=== PATIENT | male | born 1965 | race Two or more races ===

== ENCOUNTER 2016-07-25 12:48 | Emergency (ER) | payer SELFPAY ==
[~2016-07-25] VITALS: Ht 165.1 cm; Wt 61.2 kg
[2016-07-25] MEDS ORDERED: LORAZEPAM 1 MG TABLET ONE ×2 (13:09→13:22)
[2016-07-25] MEDS ORDERED: ONDANSETRON 4 MG TAB.RAPDIS ONE ×2 (13:09→13:23)
[2016-07-25] MEDS ORDERED: LORAZEPAM 1 MG TABLET PO ONE (13:30)
[2016-07-25] MEDS ORDERED: ONDANSETRON 4 MG TAB.RAPDIS SL ONE (13:30)
[2016-07-25 14:00] VITALS: BP 126/82
== END 2016-07-25 14:04 | disposition home or self-care (01) ==
LOC: ER 12:51
DX: F41.0 Panic disorder [episodic paroxysmal anxiety] (principal); F10.10 Alcohol abuse, uncomplicated; R00.0 Tachycardia, unspecified; R42 Dizziness and giddiness; R11.0 Nausea
CPT/HCPCS: 82962; 93005; 99283; A4606; Q0162; Z7610

== ENCOUNTER 2016-10-21 19:42 | Inpatient (IN) | payer MEDICAID ==
[~2016-10-21] VITALS: Ht 162.6 cm; Wt 59.1 kg
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
--- NOTE | 2016-10-21 20:15 | NUR ---
MARGUERITE SMART AT BEDSIDE FOR EVAL.
[2016-10-21] MEDS ORDERED: ACETAMINOPHEN ES 500 MG TABLET ONE (20:17)
[2016-10-21] MEDS ORDERED: KETOROLAC TROMETHAMINE INJ 30 MG/ML VIAL ONE (20:17)
--- NOTE | 2016-10-21 20:23 | NUR ---
PT TO RADIOLOGY FOR RT SIDE RIB XRAY VIA WHEELCHAIR.
[2016-10-21] MEDS ORDERED: ACETAMINOPHEN 325 MG TABLET PO ONE (20:30)
[2016-10-21] MEDS ORDERED: KETOROLAC TROMETHAMINE INJ 60 MG/2 ML VIAL IM ONE (20:30)
--- NOTE | 2016-10-21 21:53 | NUR ---
CALLED NURSING JEWELRY SORTER FOR M/S BED
[2016-10-21] MEDS ORDERED: MORPHINE SULFATE INJ 2 MG/ML DISP.SYRIN IV ONE (22:00)
[2016-10-21] MEDS ORDERED: ONDANSETRON HCL/PF 4 MG/2 ML VIAL IVP ONE (22:00)
[2016-10-21] MEDS ORDERED: MORPHINE SULFATE INJ 4 MG/ML DISP.SYRIN ONE (22:05)
[2016-10-21] MEDS ORDERED: ONDANSETRON HCL/PF 4 MG/2 ML VIAL ONE (22:05)
[2016-10-21 22:09] LABS: BASOPHILS % (AUTO) 0.1 % (0.0-2.0); EOSINOPHILS # (AUTO) 0.1 /CMM (0.0-0.7); EOSINOPHILS % (AUTO) 1.6 % (0.0-6.0); HEMATOCRIT 44 % (39-51); HEMOGLOBIN 14.8 g/dL (13.5-17.5); LYMPHOCYTES # (AUTO) 0.9 /CMM (0.8-4.8); MEAN CORPUSCULAR HEMOGLOBIN 33 PG (26.0-33.0); MEAN CORPUSCULAR HGB CONC 34 g/dl (31.0-36.0); MEAN CORPUSCULAR VOLUME 97 fL (80-96); MONOCYTES # (AUTO) 0.4 /CMM (0.1-1.30); MONOCYTES % (AUTO) 8.1 % (2.0-12.0); NEUTROPHILS % (AUTO) 73.2 % (43.0-81.0); PLATELET COUNT (AUTO) 217 /CMM (150-450); RDW COEFFICIENT OF VARIATION 12.5 (11.5-15.0); WHITE BLOOD COUNT (AUTO) 5.4 K/uL (4.3-11.0)
[2016-10-21 22:21] LABS: CALCIUM, SERUM 7.8 mg/dL (8.5-10.1); CREATININE 0.7 mg/dL (0.6-1.3); POTASSIUM 3.6 mmol/L (3.5-5.1)
--- NOTE | 2016-10-21 22:21 | NUR ---
REPORT GIVEN TO BILLY. PT AWAITING TRANSFER TO FLOOR.
[2016-10-21 22:26] LABS: ALBUMIN 3.2 g/dL (3.4-5.0); BILIRUBIN,DIRECT 0.1 mg/dL (0.0-0.2); BILIRUBIN,TOTAL 0.4 mg/dL (0.2-1.0); TOTAL PROTEIN, SERUM 7.1 g/dL (6.4-8.2)
[2016-10-21 22:28] LABS: INR 0.92 (0.87-1.13); PROTHROMBIN TIME 9.8 SECS (9.5-12.7)
[2016-10-21 22:30] VITALS: BP 136/78
--- NOTE | 2016-10-21 22:30 | NUR ---
MS RN ADMITTING NOTE RECEIVED PT COMING FROM ER VIA WHEELCHAIR, PER CXRAY RIGHT RIB FRACTURE NOTED, MORPHINE 4MG GIVEN IN ER, PT STATES PAIN BEING UNDER CONTROL CURRENTLY, NO RESPIRATORY DISTRESS NOTED DURING PHYSICAL ASSESSMENT, PT WILL REMAIN CLEAN/DRY AND COMFORTABLE, NEEDS WILL BE ANTICIPATED AND ATTENDED TO PROMPTLY DURING HOURLY ROUNDS AND NEEDED.
[2016-10-21] MEDS ORDERED: MAGNESIUM HYDROXIDE 30 ML UDC PO PRN (23:00)
[2016-10-21] MEDS ORDERED: Z GUARD REMEDY 2 OZ OINT TP PRN (23:00)
[2016-10-21] MEDS ORDERED: MORPHINE SULFATE INJ 2 MG/ML DISP.SYRIN IV PRN (23:00)
[2016-10-21] MEDS ORDERED: MAG HYDROX/AL HYDROX/SIMETH 30 ML UDC PO PRN (23:00)
[2016-10-21] MEDS ORDERED: HYDROCODONE/APAP 5/325MG 1 EACH TABLET PO PRN (23:00)
[2016-10-21] MEDS ORDERED: ACETAMINOPHEN 325 MG TABLET PO PRN (23:00)
[2016-10-21] MEDS ORDERED: ONDANSETRON HCL/PF 4 MG/2 ML VIAL IVP PRN (23:00)
[2016-10-22 07:23] LABS: BASOPHILS % (AUTO) 0.4 % (0.0-2.0); EOSINOPHILS # (AUTO) 0.2 /CMM (0.0-0.7); HEMATOCRIT 40 % (39-51); HEMOGLOBIN 13.7 g/dL (13.5-17.5); LYMPHOCYTES # (AUTO) 1.1 /CMM (0.8-4.8); LYMPHOCYTES % (AUTO) 28.6 % (20.0-44.0); MEAN CORPUSCULAR HEMOGLOBIN 34 PG (26.0-33.0); MEAN CORPUSCULAR HGB CONC 35 g/dl (31.0-36.0); MEAN CORPUSCULAR VOLUME 97 fL (80-96); MONOCYTES # (AUTO) 0.4 /CMM (0.1-1.30); MONOCYTES % (AUTO) 11.1 % (2.0-12.0); NEUTROPHILS # (AUTO) 2.2 /CMM (1.8-8.9); NEUTROPHILS % (AUTO) 55.9 % (43.0-81.0); PLATELET COUNT (AUTO) 181 /CMM (150-450); RDW COEFFICIENT OF VARIATION 12.4 (11.5-15.0); RED BLOOD CELL COUNT(AUTO) 4.08 MIL/uL (4.5-6.0)
[2016-10-22 07:41] LABS: ALBUMIN 2.8 g/dL (3.4-5.0); BILIRUBIN,TOTAL 0.7 mg/dL (0.2-1.0); CALCIUM, SERUM 7.6 mg/dL (8.5-10.1); CREATININE 0.7 mg/dL (0.6-1.3); MAGNESIUM 1.6 mg/dL (1.8-2.4); PHOSPHORUS 3.1 mg/dL (2.5-4.9); POTASSIUM 3.5 mmol/L (3.5-5.1); TOTAL PROTEIN, SERUM 6.2 g/dL (6.4-8.2)
[2016-10-22 07:46] LABS: THYROID STIMULATING HORMONE 1.55 uIU/mL (0.358-3.74)
--- NOTE | 2016-10-22 07:52 | NUR ---
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
--- NOTE | 2016-10-22 08:00 | NUR ---
RN MS NOTES PATIENT IN BED, ALERT AND ORIENTED, NO S/SX OF RESPIRATORY DISTRESS, DENIES PAIN AT THIS TIME, NEEDS ATTENDED AND MET, CALL LIGHT WITHIN REACH, WILL CONTINUE TO MONITOR.
[2016-10-22 08:27] VITALS: BP 130/68
[2016-10-22] MEDS: PANTOPRAZOLE 40 MG TABLET.DR PO SCH (08:43)
[2016-10-22] MEDS ORDERED: SECONDARY IV SET 1 EA INFUS.SET MC ONE (11:46)
[2016-10-22] MEDS ORDERED: IV SET PRIMARY PUMP SET 1 EA INFUS.SET MC ONE (11:50)
[2016-10-22] MEDS ORDERED: IV NS 0.9% 250 ML IV ONE (11:50)
[2016-10-22] MEDS: Magnesium 1GM/D5W 100ML PREMIX 100 ML IV SCH ×2 (11:58→13:16)
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
[2016-10-22 16:00] VITALS: BP 118/68
--- NOTE | 2016-10-22 16:00 | NUR ---
RN MS NOTES PATIENT SEEN BY DR. CHERYL POPE, RECEIVED NEW ORDER FOR AMBIEN FOR SLEEPING, ORDER NOTED AND CARRIED OUT. PER MD, GIVE PATIENT INCENTIVE SPIROMETER TO USE X10 Q1HR WHILE AWAKE. PATIENT GIVEN INCENTIVE SPIROMETER AND EXPLAINED HOW TO USE. PATIENT DENIES PAIN OR DISCOMFORT. PATIENT RECEIVED MAGNESIUM FOR ELECTROLYTE REPLACEMENT.
[2016-10-22] MEDS ORDERED: ZOLPIDEM TARTRATE 10 MG TABLET PO PRN (17:00)
--- NOTE | 2016-10-22 18:42 | NUR ---
RN MS NOTES PATIENT ALERT AND ORIENTED, NO S/SX OF RESPIRATORY DISTRESS, NO COMPLAINT OF PAIN AT THIS TIME, SAFETY MEASURES IN PLACED, INCENTIVE SPIROMETER AT BEDSIDE ENCOURAGED TO USE X10 EVERY HOUR, PATIENT UNDERSTOOD, CALL LIGHT PLACED WITHIN REACH, WILL ENDORSE TO NEURO PSYCH SALES SPECIALIST FOR RJ. .
--- NOTE | 2016-10-22 19:25 | NUR ---
rn note; RECEIVED PT IN AMBULATING IN HIS ROOM, A, OX3, BREATHING EVENLY. NO SOB. NO DISTRESS.NO C/O PAIN OR DISCOMFORT. REMINDER GIVEN AND EMPHASIZED ON THE USE OF SPIROMETER W/ UNDERSTANDING . NEEDS ATTENDED. CALL LIGHT WITHIN REACH . WILL CONT TO MONITOR .
[2016-10-22 20:00] VITALS: BP 118/67
--- NOTE | 2016-10-22 23:38 | NUR ---
CALLED CHERYL POPE AND CLARIFIED THE TIME FOR LUNG CT. PER HIM IT CAN BE DONE IN AM
--- NOTE | 2016-10-23 06:14 | NUR ---
RN NOTE; PT IN BED SLEEPING AROUSES EASILY. BREATHING EVENLY NO SOB. NAD. NO COUGH. REMAINED STABLE DURING THE NIGHT . WITH NO C/O PAIN OR DISCOMFORT. NEEDS ATTENDED . CALL LIGHT WITHIN REACH .WILL CONT TO MONITOR AND WILL ENDORSE TO AM SHIFT FOR RJ.
--- NOTE | 2016-10-23 07:20 | NUR ---
MS RN OPENING RECEIVED PATIENT A/OX4 DENIES PAIN, SOB, DIFFICULTY BREATHING AT THIS TIME. PATIENT WORKING WITH INCENTIVE SPIROMETER AT THIS TIME. STATES NO NEEDS. CALL LIGHT IN REACH, BED LOWERED AND LOCKED, RAILS UPX3 FOR SAFETY AND WILL ROUND Q2H OR LESS PER NEEDS
[2016-10-23 07:35] LABS: CREATININE 0.7 mg/dL (0.6-1.3); POTASSIUM 3.8 mmol/L (3.5-5.1)
[2016-10-23 08:00] VITALS: BP 106/65
[2016-10-23] MEDS: PANTOPRAZOLE 40 MG TABLET.DR PO SCH (08:02)
--- NOTE | 2016-10-23 09:50 | NUR ---
MS RN NOTES Ania came seen and examined the patient and ordered chest x-ray and noted patient has a standing order of CT chest and ordered to D/C chest x ray. All orders carried out and noted. will continue to monitor accordingly.
--- NOTE | 2016-10-23 10:04 | NUR ---
MS RN NOTES PATIENT TAKEN DOWN FOR CT SCAN
[2016-10-23 16:00] VITALS: BP 119/68
--- NOTE | 2016-10-23 16:16 | NUR ---
MS MELE NOTES CALLED RADIOLOGIST HOTLINE TO HAVE CT RESULTS READ. THEY WILL INPUT
--- NOTE | 2016-10-23 17:14 | NUR ---
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 DENIES PAIN, SOB, DIFFICULTY BREATHING BLOODY SPUTUM OR CHEST PAIN. PATIENT EDUCATED ON DISCHARGE IN [place] TO ENSURE UNDERSTANDING. PATIENT STATED UNDERSTANDING OF DISCHARGE AND PRECAUTIONS. IV REMOVED PRESSURE AND DRESSING APPLIED NO BLEEDING. PATIENT BELONGINGS ALL ACCOUNTED FOR. BUS TOKENS GIVEN TO PATIENT TO GO HOME PER REQUEST. PATIENT LEFT IN STABLE CONDITION NO COMPLICATIONS.
== END 2016-10-23 17:10 | disposition home or self-care (01) | DRG 135 ==
LOC: ER 19:42 → MED 22:05
PROVIDERS: ADMIT Contractor; ATTEND Contractor
DX: S27.2XXA Traumatic hemopneumothorax, initial encounter (principal); S27.9XXA Injury of unspecified intrathoracic organ, initial encounter; S22.41XA Multiple fractures of ribs, right side, initial encounter for closed fracture; W19.XXXA Unspecified fall, initial encounter; Y93.9 Activity, unspecified; Y92.9 Unspecified place or not applicable; F17.210 Nicotine dependence, cigarettes, uncomplicated; R74.0 Nonspecific elevation of levels of transaminase and lactic acid dehydrogenase [LDH]; Z72.89 Other problems related to lifestyle
CPT/HCPCS: 36415; 71010-TC; 71100-TC; 71250-TC; 76700-TC; 80048-TC; 80053-TC; 80061-TC; 80076-TC; 82746; 83735-TC; 84100-TC; 84443-TC; 85025-TC; 85730-TC; 87081-TC; 97001-TC; 97003-TC; A4606; J1885; J2270; J2405; J3475; J7050; Z7610